=== PATIENT | male | born 1955 | race Caucasian/White ===

== ENCOUNTER 2020-02-12 18:43 | Observation (INO) | payer MEDICARE, OTHER ==
--- NOTE | 2020-02-12 19:33 | RAD ---
PORTABLE CHEST: 02/12/20 HISTORY: Fever. Lungs are clear. No infiltrate or vascular congestion. Heart size is normal. IMPRESSION: No acute findings. POS: AGW
[2020-02-12 19:55] LABS: Mean Corpuscular Volume 89.8 fL (78.0-98.0)
[2020-02-12 20:04] LABS: #Lymphocytes 0.7 thou/uL (1.20-3.40); #Monocytes 0.3 thou/uL (0.11-0.59); #Neutrophils 2.9 thou/uL (1.40-6.50); %Basophils 0.6 % (0.0-1.0); %Eosinophils 0.7 % (0.0-10.0); %Lymphocytes 18.1 % (21.0-51.0); %Monocytes 8.1 % (0.0-10.0); %Neutrophils 72.5 % (42.0-75.0); Hemoglobin 13.8 g/dL (14.0-18.0); Mean Corpuscular HGB CONC 33.6 g/dL (32.0-36.0); Mean Corpuscular Hemoglobin 30.1 pg (27.0-31.0); Mean Platelet Volume 10.4 fL (7.4-10.4); Platelet Count 89 thou/uL (130-400); Platelet Morphology Comment Appears Decreased; RBC Distribution Width 16.5 % (11.5-14.5); Red Blood Cell (RBC) Count 4.58 mill/uL (4.70-6.10)
[2020-02-12 20:11] LABS: ALT (SGPT) 59 U/L (8-55); AST (SGOT) 72 U/L (5-34); Albumin 3.3 g/dL (3.4-4.8); Alkaline Phosphatase 109 U/L (40-110); Anion Gap 9 mmol/L (10-20); BUN (Urea Nitrogen) 10 mg/dL (8.4-25.7); Bilirubin, Total 0.8 mg/dL (0.2-1.2); Calc. Creatinine Clearance 0 mL/min (70-130); Calcium 8.2 mg/dL (7.8-10.44); Carbon Dioxide 26 mmol/L (23-31); Chloride 104 mmol/L (98-107); Estimated GFR-MDRD 90; Globulin 3.3 g/dL (2.4-3.5); Glucose 88 mg/dL (80-115); Potassium 3.2 mmol/L (3.5-5.1); Protein, Total 6.6 g/dL (5.8-8.1); Sodium 136 mmol/L (136-145)
[2020-02-12 21:40] LABS: Bilirubin Negative (Negative); Blood, Urine Negative (Negative); Clarity Clear (Clear); Glucose, Urine (Dipstick) Normal (Negative); Leukocyte Negative Leu/uL (Negative); Nitrite Negative (Negative); Protein, Urine (Dipstick) Negative (Neg-Trace); Urobilinogen 3 mg/dL (Less than 2)
[2020-02-12 23:41] VITALS: BMI 20.9
[2020-02-13] MEDS ORDERED: hydrALAZINE 20 MG/ML VIAL SLOW IVP SCH (00:30)
[2020-02-13] MEDS ORDERED: Acetaminophen 325 MG TAB PO PRN (00:55)
[2020-02-13] MEDS ORDERED: Acetaminophen 650 MG Suppository PR PRN (00:55)
[2020-02-13] MEDS ORDERED: Lorazepam 1 MG TAB PO PRN (01:16)
[2020-02-13 01:36] LABS: Amphetamine Not Detected (NotDetected); Barbiturates Screen Not Detected (NotDetected); Benzodiazepine Screen Not Detected (NotDetected); Cocaine Metabolite Screen Not Detected (NotDetected); Medtox Control Line Valid? VALID (VALID); Medtox Reader # READER 1; Methadone Not Detected (NotDetected); Methamphetamine Not Detected (NotDetected); Opiate Screen Not Detected (NotDetected); Oxycodone Screen Not Detected (NotDetected); Phencyclidine (PCP) Not Detected (NotDetected); THC/Cannabinoid Screen Detected (NotDetected); Tricyclic Screen Not Detected (NotDetected)
[2020-02-13] MEDS: Potassium Chloride 20 MEQ TAB PO SCH ×2 (02:53→03:21)
[2020-02-13] MEDS: Thiamine HCl 200 MG/2 ML VIAL IM SCH ×2 (02:53→03:21)
[2020-02-13 03:14] LABS: #Lymphocytes 1.1 thou/uL (1.20-3.40); #Monocytes 0.3 thou/uL (0.11-0.59); %Basophils 0.5 % (0.0-1.0); %Eosinophils 0.4 % (0.0-10.0); %Lymphocytes 24.4 % (21.0-51.0); %Monocytes 7.5 % (0.0-10.0); %Neutrophils 67.2 % (42.0-75.0); Hemoglobin 14.2 g/dL (14.0-18.0); Mean Corpuscular HGB CONC 33.6 g/dL (32.0-36.0); Mean Corpuscular Hemoglobin 29.8 pg (27.0-31.0); Mean Corpuscular Volume 88.6 fL (78.0-98.0); Mean Platelet Volume 10.2 fL (7.4-10.4); Platelet Count 87 thou/uL (130-400); RBC Distribution Width 16.3 % (11.5-14.5); Red Blood Cell (RBC) Count 4.75 mill/uL (4.70-6.10); White Blood Cell (WBC) Count 4.5 thou/uL (4.8-10.8)
[2020-02-13 03:25] LABS: Lactic Acid 0.6 mmol/L (0.5-2.2)
[2020-02-13 03:44] LABS: Anion Gap 11 mmol/L (10-20); BUN (Urea Nitrogen) 8 mg/dL (8.4-25.7); Calc. Creatinine Clearance 81 mL/min (70-130); Calcium 8.4 mg/dL (7.8-10.44); Carbon Dioxide 23 mmol/L (23-31); Chloride 108 mmol/L (98-107); Estimated GFR-MDRD Greater than 90; Glucose 96 mg/dL (80-115); Potassium 3.4 mmol/L (3.5-5.1); Sodium 139 mmol/L (136-145)
--- NOTE | 2020-02-13 08:00 | HP ---
TIME OF ASSESSMENT: 0030 hours. REASON FOR ADMISSION: Syncope. HISTORY OF PRESENT ILLNESS: Mr. Mroales is a 65-year-old gentleman who states he came into the emergency department after having a syncopal episode. The patient states he has answered questions from multiple people since arriving to the emergency department and is refusing to answer any further questions. He does deny having any complaints at this time except feeling cold and requesting the temperature in the room to be increased. The patient became very agitated and upset, requesting to be left alone and to obtain information needed from the notes and nurse, we had spoken to on the floor. Most of the information obtained from the ED notes and from nurse. The patient reportedly had an episode of choking as per EMS, and became unresponsive. The family reportedly did want chest compression. The patient responded, but came back to complaining of pain to the right side of his chest. He did state he was not feeling well prior to the syncopal episode. To me, he denied having any preceding chest pain or difficulty breathing. Denies having any dizziness. The patient has left-sided droop with slurred speech at baseline. Apparently, his blood glucose was checked and low at 56, therefore given a bolus of D10 by EMS. Per ED notes, the patient reported feeling unwell since yesterday, and had a temperature of 101 at home. He has been afebrile since arriving to the emergency department. He complained of feeling fatigued. Denies any cough or hemoptysis. No abdominal pain. No nausea or vomiting. No urinary symptoms. According to the floor nurse, the patient reported smoking 1 to 2 packs per day and initially requested nicotine patch. However, once I went to verify this with him, he became very upset and stated that next time he will not let anyone know that he smokes and he is not interested in any nicotine patch. The patient also reported to nurses that he drinks 2 to 3 beers a day. With me, he became very agitated and did not wish to talk about his alcohol intake, but did deny having any history of seizures or tremors when not drinking alcohol. Denies any drug use. The patient with a history of tongue cancer, status post chemoradiation with subsequent damage to the left mandible, requiring jaw replacement in 2019. The patient apparently had a skin graft to that area taken from the left lower extremity with the wound has been slow healing. EMERGENCY DEPARTMENT COURSE: In the emergency department, EKG showed sinus bradycardia with no ST changes or T-wave abnormalities. He had a chest x-ray done which showed no acute findings. In the emergency department, the patient was given 1 L of normal saline. Admitted for further syncopal workup. LABORATORY STUDIES: Low white count of 4.0, hemoglobin 13.8, hematocrit 41.1, neutrophils 72.5%. Sodium was 136, potassium slightly low at 3.2, BUN 10, creatinine 0.86, GFR 90, glucose 88, total bilirubin 0.8, AST 72, ALT 59, alkaline phosphatase 109. Initial troponin negative. Albumin 3.3. Urinalysis done, was unremarkable. PAST MEDICAL HISTORY: 1. Tongue cancer status post chemoradiation. 2. Hypertension. 3. Hyperlipidemia. 4. Hypothyroidism. 5. Daily alcohol use. 6. Tobacco use. PAST SURGICAL HISTORY: Jaw replacement in 2019. SOCIAL HISTORY: The patient reports drinking 2 to 3 beers per day. Denies illicit drug use. Reports smoking 1 to 2 packs per day. ALLERGIES: NO KNOWN DRUG ALLERGIES. CURRENT MEDICATIONS: Lisinopril 20 mg two tablets p.o. daily. PHYSICAL EXAMINATION: GENERAL: The patient appears thin, frail, well developed, in no acute distress. VITAL SIGNS: Temperature 97.6, pulse 61, respirations 14, O2 saturation 98% on room air, blood pressure of 217/102. HEENT: Normocephalic and atraumatic. The patient with facial droop, which is longstanding. Has had a jaw replacement in 2019. Pupils are equal, round, and reactive to light. Sclerae without icterus. Remaining physical exam limited due to patient requesting to be left alone. LUNGS: Clear. CARDIAC: Regular rate and rhythm. ABDOMEN: Soft, nontender, nondistended. Normoactive bowel sounds present. No guarding or rigidity. EXTREMITIES: Lower extremity with bandage to the left lower extremity, however, patient refusing to be examined. He has a skin graft done for the left jaw surgery with slow healing. Unable to examine as the patient has refused. No evidence of lower extremity edema. NEUROLOGIC: Alert and oriented x3. INVESTIGATIONS: As mentioned above in HPI. IMPRESSION AND PLAN: Mr. Morales is a 65-year-old gentleman who had a syncopal episode today and apparently family had seen him unconscious and delivered one compression as they were confused as to what was going on. Unable to obtain much history from the patient as he is refusing to provide any information. He does report feeling unwell prior to the episode, but denies any preceding chest pain, palpitations, or shortness of breath. Denies any headaches. At present, he denies any complaints except for feeling cold. The patient with a known history of tongue cancer status post chemoradiation, for which required two chemoradiation followed by jaw replacement with a skin graft taken from the left lower extremity that continues to heal slowly. Unable to assess the wound. The patient denies any signs or symptoms of infection involving the wound. He was reportedly febrile at home with a temperature of 101, but has been afebrile since arriving to the emergency department. He has not been started on any antibiotics and received a liter of normal saline. We will continue to manage the following. 1. Syncope. We will obtain an echo, carotid Dopplers, orthostatic static blood pressures, and continue his cardiac monitoring. 2. Hypokalemia. Will replace potassium. We will also add magnesium. 3. COVID rule out. Given low white count of 4 with slightly elevated AST and ALT, and reported fever. We will need to rule out COVID-19. 4. History of heavy alcohol use. We will initiate the ASE protocol. UDS ordered. 5. Hypertension. Monitor blood pressure. Resume home medications once verified. 6. Hypothyroidism. We will check TSH. Resume home medications once verified. 7. Code status. The patient reported to nurse he does not wish to be intubated or have compressions done on him. He does not have any advanced directives in place. He is refusing to discuss advanced directives at this time, nor who his MPOA is. To be readdressed with day team in the morning. 8. Gastrointestinal prophylaxis with famotidine. We will hold off on mechanical SCDs until wound evaluated. Consult has been placed to the Wound Care. Case was discussed with attending, who agrees with plan of care as described above. Job ID: [id number] MTDD
[2020-02-13] MEDS: Multivitamin W/ Minerals 1 TAB PO SCH ×2 (08:37→08:54)
[2020-02-13] MEDS: Folic Acid 1 MG TAB PO SCH ×2 (08:37→08:54)
[2020-02-13] MEDS: Famotidine 20 MG TAB PO SCH ×2 (08:37→08:54)
[2020-02-13] MEDS ORDERED: Famotidine/PF 20 mg/2ml Vial SLOW IVP SCH (09:00)
[2020-02-13] MEDS ORDERED: traMADol HCl 50 MG TAB PO PRN (12:23)
[2020-02-13] MEDS ORDERED: Lisinopril 20 MG TAB PO SCH (15:00)
[2020-02-13 15:06] LABS: SARS-CoV-2 MS2 Positive; SARS-CoV-2 N Gene Negative; SARS-CoV-2 S Gene Negative; SARS-CoV-2 orf1ab Negative
--- NOTE | 2020-02-13 15:36 | PDOC.HOSPP ---
- Subjective Encounter Date: 02/13/20 (f/u syncope) Encounter Time: 15:35 Subjective: Pt was admitted overnight for syncope - not much hx obtained - see H&P Pt reports yesterday not feeling well, went to put his head down and blacked out. States he woke up with someone on top of him and an ambulance. He also reports a recent episode of chills/fevers and states it was a few days ago. He denies any ppt or relieving factors. He reports low blood sugars in the past, denies any hx of DM or medications for this. He does report missing his normal oatmeal yesterday. - Objective Vital Signs & Weight: Vital Signs (12 hours) Temp Pulse Resp BP BP BP BP 02/13/20 15:07 98.2 F 63 16 185/85 H 02/13/20 12:23 98.5 F 65 20 213/103 H 214/98 H 177/84 H 02/13/20 08:30 98.6 F 72 20 190/91 H Pulse Ox 02/13/20 15:07 98 02/13/20 12:23 96 02/13/20 08:30 97 Weight Weight 133 lb 12.8 oz I&O: 02/12/20 02/13/20 02/14/20 06:59 06:59 06:59 Intake Total 1220 Output Total 950 Balance 270 Result Diagrams: 02/13/20 02:59 02/13/20 02:59 EKG Reviewed by me: Yes (tele - sinus 80's) Hospitalist ROS - Medication Medications: Active Medications Generic Name Dose Route Start Last Admin Trade Name Silvestre PRN Reason Stop Dose Admin Famotidine 20 mg 02/13/20 09:00 02/13/20 08:54 Pepcid PO Not Given BID JOAN Folic Acid 1 mg 02/13/20 09:00 02/13/20 08:54 Folvite PO Not Given DAILY JOAN Iron/Minerals/Multivitamins 1 tab 02/13/20 09:00 02/13/20 08:54 Theragran M PO Not Given DAILY JOAN Lisinopril 40 mg 02/13/20 15:00 02/13/20 15:00 Zestril PO 02/13/20 17:00 40 mg NOW JOAN Administration - Exam General Appearance: NAD General - other findings: cachectic appearing Heart: RRR, no murmur Respiratory - other findings: distant lung sounds - no audible wheezing/rhonchi/ rales Gastrointestinal: soft, non-tender, non-distended, normal bowel sounds Extremities: no cyanosis, no clubbing, no edema Skin - other findings: LLE - lateral aspect - denuded area, clean base, no surrounding erythema Psychiatric: normal affect Hosp A/P (1) Syncope Code(s): R55 - SYNCOPE AND COLLAPSE Status: Acute Qualifiers: Syncope type: unspecified Qualified Code(s): R55 - Syncope and collapse (2) Hypertension Code(s): I10 - ESSENTIAL (PRIMARY) HYPERTENSION Status: Chronic Qualifiers: Hypertension type: essential hypertension Qualified Code(s): I10 - Essential (primary) hypertension (3) Hypothyroid Code(s): E03.9 - HYPOTHYROIDISM, UNSPECIFIED Status: Chronic Qualifiers: Hypothyroidism type: unspecified Qualified Code(s): E03.9 - Hypothyroidism , unspecified (4) Hypokalemia Code(s): E87.6 - HYPOKALEMIA Status: Acute (5) Hypoglycemia Code(s): E16.2 - HYPOGLYCEMIA, UNSPECIFIED Status: Acute (6) Tobacco abuse Code(s): Z72.0 - TOBACCO USE Status: Chronic (7) Alcohol use Code(s): Z72.89 - OTHER PROBLEMS RELATED TO LIFESTYLE Status: Chronic (8) Skin ulcer Code(s): L98.499 - NON-PRESSURE CHRONIC ULCER OF SKIN OF SITES W UNSP SEVERITY Status: Chronic - Plan COVID negative - proceed with syncope eval - echo and carotid ultrasound Hypoglycemia - has not recurred, uncertain etiology Hypothyroid on replacement with elevated TSH - check Free t4 Replace potassium resume lisinopril and likely will need a 2nd agent as bp is uncontrolled continue telemetry monitoring chronic skin ulcer- non-adherent dressing, wound appears clean thrombocytopenia - monitor Daily alcohol use - monitor for signs of withdrawal. Tobacco use - pt declines nicotine patch. dvt prophy - hold on this due to thrombocytopenia and skin wound on LLE. Pt is ambulatory gi prophy - not indicated code status DNAR - pt confirmed this reviewed plan of care with patient, no questions or further needs at end of eval
[2020-02-13] MEDS ORDERED: Potassium Chloride 20 MEQ TAB PO SCH (15:45)
[2020-02-13] MEDS ORDERED: Potassium Chloride 20 MEQ/100 ML PREMIX BAG IVPB SCH (17:00)
--- NOTE | 2020-02-13 17:24 | ULT ---
CAROTID DOPPLER: Indications: Syncope. FINDINGS: Ultrasound doppler study was performed of the extracranial carotid arteries. Color doppler, spectral analysis and velocity recordings were obtained. Diffuse intimal thickening and echogenic plaque seen throughout both extracranial carotid systems. There are increased velocities recorded in the right common carotid artery at 167 cm/sec systolic. The internal carotid artery velocities are within normal range bilaterally. The vertebral arteries show antegrade flow. IMPRESSION: 1. Moderate echogenic plaque throughout both carotid systems. 2. Elevated velocities in the right common carotid artery. Recommend elective CTA neck to further dann luate. POS: TREE
--- NOTE | 2020-02-13 18:00 | PDOC.EVN ---
Event Note - Event Note Event Note: Called by nurse for bp's in the 190's systolic. He received lisinopril earlier. Will order low dose amlodipine starting tonight, and prn hydralazine. The goal is to avoid any rapid changes in bp and slowly lower with goal of less [id number] systolic.
[2020-02-13] MEDS: hydrALAZINE 20 MG/ML VIAL SLOW IVP PRN (18:16)
[2020-02-13] MEDS: Atorvastatin Calcium 20 MG TAB PO SCH (20:00)
[2020-02-13] MEDS ORDERED: Amlodipine 5 MG TAB PO SCH (21:00)
[2020-02-13] MEDS ORDERED: Enoxaparin Sodium 30 MG/0.3 ML SYRINGE SC SCH (21:00)
[2020-02-14 04:16] LABS: Anion Gap 12 mmol/L (10-20); BUN (Urea Nitrogen) 10 mg/dL (8.4-25.7); Calc. Creatinine Clearance 78 mL/min (70-130); Calcium 8.4 mg/dL (7.8-10.44); Carbon Dioxide 22 mmol/L (23-31); Chloride 106 mmol/L (98-107); Estimated GFR-MDRD Greater than 90; Glucose 64 mg/dL (80-115); Potassium 3.6 mmol/L (3.5-5.1); Sodium 136 mmol/L (136-145)
[2020-02-14] MEDS: Levothyroxine Sodium 50 MCG TAB PO SCH (05:45)
[2020-02-14] MEDS: Lisinopril 20 MG TAB PO SCH (08:47)
[2020-02-14] MEDS: Magnesium Oxide 400 MG TAB PO SCH (08:48)
[2020-02-14] MEDS: Thiamine 100 MG TAB PO SCH (08:48)
[2020-02-14] MEDS: Multivitamin W/ Minerals 1 TAB PO SCH (08:48)
[2020-02-14] MEDS: Folic Acid 1 MG TAB PO SCH (08:48)
[2020-02-14] MEDS ORDERED: Amlodipine 5 MG TAB PO SCH ×2 (09:00→18:15)
[2020-02-14] MEDS ORDERED: Iopamidol 370 76% 100 ML VIAL ONE (09:39)
--- NOTE | 2020-02-14 10:15 | PDOC.HOSPP ---
- Subjective Encounter Date: 02/14/20 (f/u syncope) Encounter Time: 10:13 Subjective: Pt without complaints today - denies any lightheaded/dizziness/cp/sob/n/v/abd pain. He denies any sx with the orthostatic VS - Objective Vital Signs & Weight: Vital Signs (12 hours) Temp Pulse Resp BP BP BP BP 02/14/20 08:44 98.2 F 90 16 179/58 H 151/70 H 02/14/20 04:27 171/76 H 02/14/20 03:46 97.4 F L 70 17 171/76 H BP Pulse Ox 02/14/20 08:44 203/58 H 02/14/20 04:27 02/14/20 03:46 96 Weight Weight 133 lb 12.8 oz I&O: 02/13/20 02/14/20 02/15/20 06:59 06:59 06:59 Intake Total 1220 325 Output Total 950 940 Balance 270 -615 Result Diagrams: 02/13/20 02:59 02/14/20 03:45 Radiology Reviewed by me: Yes (Abnormal Carotid US - bilateral moderate blockage ) EKG Reviewed by me: Yes (tele - sinus 70-90's) Hospitalist ROS - Medication Medications: Active Medications Generic Name Dose Route Start Last Admin Trade Name Silvestre PRN Reason Stop Dose Admin Amlodipine Besylate 5 mg 02/14/20 09:00 02/14/20 08:47 Norvasc PO 5 mg DAILY JOAN Administration Atorvastatin Calcium 20 mg 02/13/20 21:00 02/13/20 20:00 Lipitor PO 20 mg HS JOAN Administration Folic Acid 1 mg 02/13/20 09:00 02/14/20 08:48 Folvite PO 1 mg DAILY JOAN Administration Hydralazine HCl 20 mg 02/13/20 17:57 02/13/20 18:16 Apresoline SLOW IVP 20 mg Q6H PRN Administration SBP Greater Than 180 Iron/Minerals/Multivitamins 1 tab 02/13/20 09:00 02/14/20 08:48 Theragran M PO 1 tab DAILY JOAN Administration Levothyroxine Sodium 50 mcg 02/14/20 06:00 02/14/20 05:45 Synthroid PO 50 mcg 0600 JOAN Administration Lisinopril 40 mg 02/14/20 09:00 02/14/20 08:47 Zestril PO 40 mg DAILY JOAN Administration Magnesium Oxide 400 mg 02/14/20 09:00 02/14/20 08:48 Magnesium Oxide PO 400 mg DAILY JOAN Administration Thiamine HCl 100 mg 02/14/20 09:00 02/14/20 08:48 Thiamine PO 100 mg DAILY JOAN Administration - Exam Heart: RRR, no murmur Respiratory: CTAB, no wheezes, no rales, no ronchi Gastrointestinal: soft, non-tender, non-distended, normal bowel sounds Extremities: no cyanosis, no clubbing, no edema Skin - other findings: unchanged clean skin ulcer lateral LLE Psychiatric: normal affect Hosp A/P (1) Syncope Code(s): R55 - SYNCOPE AND COLLAPSE Status: Acute Qualifiers: Syncope type: unspecified Qualified Code(s): R55 - Syncope and collapse (2) Hypertension Code(s): I10 - ESSENTIAL (PRIMARY) HYPERTENSION Status: Chronic Qualifiers: Hypertension type: essential hypertension Qualified Code(s): I10 - Essential (primary) hypertension (3) Hypothyroid Code(s): E03.9 - HYPOTHYROIDISM, UNSPECIFIED Status: Chronic Qualifiers: Hypothyroidism type: unspecified Qualified Code(s): E03.9 - Hypothyroidism , unspecified (4) Hypokalemia Code(s): E87.6 - HYPOKALEMIA Status: Acute (5) Hypoglycemia Code(s): E16.2 - HYPOGLYCEMIA, UNSPECIFIED Status: Acute (6) Tobacco abuse Code(s): Z72.0 - TOBACCO USE Status: Chronic (7) Alcohol use Code(s): Z72.89 - OTHER PROBLEMS RELATED TO LIFESTYLE Status: Chronic (8) Skin ulcer Code(s): L98.499 - NON-PRESSURE CHRONIC ULCER OF SKIN OF SITES W UNSP SEVERITY Status: Chronic - Plan COVID negative syncope - awaiting echo and CT angiogram neck ordered for abnormal carotid US - start IVF due to contrast study Hypoglycemia on labs this AM - not sx Hypothyroid on replacement with elevated TSH - normal free T4 - will need recheck in outpatient setting HTN - uncontrolled with orthostatic changes - asx. Continue amlodipine ( initiated yesterday) and lisinopril and monitor. continue telemetry monitoring chronic skin ulcer- wound clean, continue dressing changes thrombocytopenia - stable Daily alcohol use - so far, no signs of withdrawal Tobacco use - pt declines nicotine patch. Per RN - poor PO intake - continue supplements. dvt prophy - hold on this due to thrombocytopenia and skin wound on LLE. Pt is ambulatory gi prophy - not indicated code status DNAR reviewed plan of care with patient, no questions or further needs at end of eval home pending improved bp control, results of echo and CT-A Addendum at 18:04 - CT-A without significant stenosis, echo pending. Poor blood pressure control despite addition and increase with amlodipine. Will increase amlodipine, and recheck orthostatics in AM and follow blood pressure. Pt agreeable to remain in hospital overnight. Due to poor bp control, orthostatic changes in bp, considering IP status.
[2020-02-14] MEDS: Sodium Chloride 0.9% 1,000 ML IV SCH (11:11)
--- NOTE | 2020-02-14 11:35 | CT ---
CTA OF THE NECK WITH IV CONTRAST AND 3-D REFORMATTED IMAGING. INDICATION: History of abnormal carotid duplex ultrasound with concern for stenosis involving the rig ht common carotid artery COMPARISON: Right carotid ultrasound report dated 02/13/2020 FINDINGS: Right CCA: There is a mild to moderate atherosclerotic disease involving the right common carotid ar mookie with only mild luminal caliber narrowing seen along its proximal segment. Right ICA: There is mild luminal caliber narrowing due to atherosclerotic plaque involving the proxi mal right ICA. 20% luminal caliber narrowing. No hemodynamically significant stenosis is noted. There is moderate calcification involving the right petrous segment of the ICA. Right Subclavian: Patent. Right Vertebral Artery: Patent. Left CCA: [id number] atherosclerotic irregularity seen involving left common carotid artery. Left ICA: There is calcified atherosclerotic plaque involving the proximal left ICA inducing 20% lum inal caliber narrowing. Remaining course of the cervical ICAs patent. There are moderate calcifications involving the petrous segment of the left ICA. Left Subclavian: Patent. Left Vertebral Artery: Patent. Aerodigestive tract: Clear. Parotids/Submandibular/Thyroid glands: Normal. Lymph nodes: No pathologically enlarged lymph nodes. Lung Apices: Clear. Bones: No acute osseous abnormality. Incidentals: None. IMPRESSION: 1. No hemodynamically significant stenosis, occlusion or aneurysmal formation. 2. Mild luminal caliber narrowing involving the proximal ICAs bilaterally measuring up to 20%. 3. Moderate calcification involving the petrous segment of the right and left ICA.
[2020-02-14] MEDS: hydrALAZINE 20 MG/ML VIAL SLOW IVP PRN (14:33)
[2020-02-14] MEDS: Atorvastatin Calcium 20 MG TAB PO SCH (19:43)
[2020-02-15] MEDS: Levothyroxine Sodium 50 MCG TAB PO SCH (05:50)
[2020-02-15] MEDS: Sodium Chloride 0.9% 1,000 ML IV SCH (05:50)
[2020-02-15] MEDS: Lisinopril 20 MG TAB PO SCH (08:29)
[2020-02-15] MEDS: Thiamine 100 MG TAB PO SCH (08:30)
[2020-02-15] MEDS: Folic Acid 1 MG TAB PO SCH (08:30)
[2020-02-15] MEDS: Magnesium Oxide 400 MG TAB PO SCH (08:30)
[2020-02-15] MEDS: Multivitamin W/ Minerals 1 TAB PO SCH (08:30)
--- NOTE | 2020-02-15 08:52 | PDOC.HOSPP ---
- Subjective Encounter Date: 02/15/20 (f/u syncope) Encounter Time: 08:49 Subjective: Pt is without complaints today - denies lightheaded/dizzy/cp/sob/n/v/abd pain or any concerns. He has voided multiple times overnight. Is on IVF post- contrast CT scan. - Objective Vital Signs & Weight: Vital Signs (12 hours) Temp Pulse Resp BP BP Pulse Ox 02/15/20 08:29 77 163/74 H 02/15/20 04:00 98.0 F 72 20 163/72 H 96 Weight Admit Weight 133 lb 8 oz Weight 133 lb 12.8 oz I&O: 02/14/20 02/15/20 02/16/20 06:59 06:59 06:59 Intake Total 325 960 Output Total 940 1400 Balance -615 440 Result Diagrams: 02/13/20 02:59 02/14/20 03:45 EKG Reviewed by me: Yes (tele - sinus 60's) Hospitalist ROS - Medication Medications: Active Medications Generic Name Dose Route Start Last Admin Trade Name Freq PRN Reason Stop Dose Admin Amlodipine Besylate 10 mg 02/15/20 09:00 02/15/20 08:29 Norvasc PO 10 mg DAILY JOAN Administration Atorvastatin Calcium 20 mg 02/13/20 21:00 02/14/20 19:43 Lipitor PO 20 mg HS JOAN Administration Folic Acid 1 mg 02/13/20 09:00 02/15/20 08:30 Folvite PO 1 mg DAILY JOAN Administration Hydralazine HCl 20 mg 02/13/20 17:57 02/14/20 14:33 Apresoline SLOW IVP 20 mg Q6H PRN Administration SBP Greater Than 180 Iron/Minerals/Multivitamins 1 tab 02/13/20 09:00 02/15/20 08:30 Theragran M PO 1 tab DAILY JOAN Administration Levothyroxine Sodium 50 mcg 02/14/20 06:00 02/15/20 05:50 Synthroid PO 50 mcg 0600 JOAN Administration Lisinopril 40 mg 02/14/20 09:00 02/15/20 08:29 Zestril PO 40 mg DAILY JOAN Administration Magnesium Oxide 400 mg 02/14/20 09:00 02/15/20 08:30 Magnesium Oxide PO 400 mg DAILY JOAN Administration Thiamine HCl 100 mg 02/14/20 09:00 02/15/20 08:30 Thiamine PO 100 mg DAILY JOAN Administration - Exam General Appearance: NAD Heart: RRR, no murmur Respiratory: CTAB, no wheezes, no rales, no ronchi Gastrointestinal: soft, non-tender, non-distended, normal bowel sounds Extremities: no cyanosis, no clubbing, no edema Psychiatric: normal affect Hosp A/P (1) Syncope Code(s): R55 - SYNCOPE AND COLLAPSE Status: Acute Qualifiers: Syncope type: unspecified Qualified Code(s): R55 - Syncope and collapse (2) Hypertension Code(s): I10 - ESSENTIAL (PRIMARY) HYPERTENSION Status: Chronic Qualifiers: Hypertension type: essential hypertension Qualified Code(s): I10 - Essential (primary) hypertension (3) Hypothyroid Code(s): E03.9 - HYPOTHYROIDISM, UNSPECIFIED Status: Chronic Qualifiers: Hypothyroidism type: unspecified Qualified Code(s): E03.9 - Hypothyroidism , unspecified (4) Hypokalemia Code(s): E87.6 - HYPOKALEMIA Status: Acute (5) Hypoglycemia Code(s): E16.2 - HYPOGLYCEMIA, UNSPECIFIED Status: Acute (6) Tobacco abuse Code(s): Z72.0 - TOBACCO USE Status: Chronic (7) Alcohol use Code(s): Z72.89 - OTHER PROBLEMS RELATED TO LIFESTYLE Status: Chronic (8) Skin ulcer Code(s): L98.499 - NON-PRESSURE CHRONIC ULCER OF SKIN OF SITES W UNSP SEVERITY Status: Chronic - Plan COVID negative syncope - CT angio without significant stenosis, awaiting Echo report Hypothyroid on replacement with elevated TSH - normal free T4 - will need recheck in outpatient setting HTN - improved control with combination of amlodipine and lisinopril chronic skin ulcer- wound clean, continue dressing changes thrombocytopenia - stable Daily alcohol use - so far, no signs of withdrawal, recommend vitamin supplements at discharge Tobacco use - pt declines nicotine patch. Per RN - poor PO intake here, pt denies this at home - continue supplements. dvt prophy - hold on this due to thrombocytopenia and skin wound on LLE. Pt is ambulatory gi prophy - not indicated code status DNAR reviewed plan of care with patient, no questions or further needs at end of eval anticipate home today.
[2020-02-15] MEDS ORDERED: Amlodipine 10 MG TAB PO SCH (09:00)
[2020-02-15 15:46] VITALS: BP 164/84; TEMP 97.9
--- NOTE | 2020-02-16 01:59 | DIS ---
DATE OF ADMISSION: 02/12/2020 DATE OF DISCHARGE: 02/15/2020 MEDICATIONS RECONCILED AT DISCHARGE: New medications: 1. Amlodipine 10 mg p.o. daily, prescription provided for 30 days, further refills from the primary care provider. 2. Folic acid 1 mg daily. 3. Magnesium oxide 400 mg daily. 4. Multivitamin daily. 5. Thiamine 100 mg daily. Medications to resume: 1. Atorvastatin 20 mg daily. 2. Levothyroxine 50 mcg daily. 3. Lisinopril 40 mg daily. 4. Naproxen 500 mg b.i.d. p.r.n. 5. Tramadol 50 mg p.o. b.i.d. FINAL DIAGNOSES: 1. Syncope, unknown etiology. 2. Uncontrolled hypertension, improved. 3. Hypokalemia, resolved. SECONDARY DIAGNOSES: 1. Hypothyroidism. 2. Dyslipidemia. 3. Alcohol use. 4. Tobacco use. HISTORY OF PRESENT ILLNESS: Mr. Morales is a 65-year-old male who came to the emergency department after a syncopal event. He reports going to lay is head down because he felt lightheaded or dizzy and the next thing he remembers he was on the ground. He was admitted for a syncope evaluation. HOSPITAL COURSE: The patient was ruled out for COVID and had a delay in initiation of studies for the syncope because of this. He underwent echocardiogram, which is essentially normal, had a CT angiogram of his neck, which did not show any significant stenosis. He has been monitored on telemetry and maintained a sinus rhythm. The patient's blood pressures have been uncontrolled and in the 190s and 200s systolic. He is on lisinopril 40 mg once daily at home. I added amlodipine low dose at first and titrated up to 10 mg daily. With this combination, his blood pressures today are in the 150s and 160s. He was orthostatic at the beginning of this admission, however, that has resolved. The patient had an abnormal carotid Doppler ultrasound, and underwent CT angiogram which did not show any significant stenosis. Because of the contrast study and patient is on an RAS inhibitor, he was hydrated with IV fluids and tolerated this well. The patient is overall feeling well, asymptomatic, no further episodes of syncope. He does meet criteria for discharge to home. Of note, in the outpatient setting , his TSH is 8, and needs consideration for adjustment of his levothyroxine. The patient does have a thrombocytopenia, which has been stable here. Further workup is deferred to the outpatient setting. Of note, patient does report daily alcohol use. He was started on vitamin and mineral supplementation and monitored for alcohol withdrawal, which he has not demonstrated. PHYSICAL EXAMINATION: VITAL SIGNS: On day of discharge, please see the note on the chart. CAMACHO FINDINGS AND TEST RESULTS: CBC on February 12; 4.5, 14.2, 42.1, 87. Chemistry from February 13; 136, 3.6, 106, 22, 10, 0.82, 64. Urinalysis, positive urobilinogen. Urine drug screen, present cannabinoids. COVID-19 is negative. Echocardiogram performed today shows an EF of 65% to 70%, mild concentric LVH, structurally normal aortic valve with no significant stenosis or regurgitation. CT angiogram of the neck shows no hemodynamically significant stenosis, occlusion, or aneurysmal formation. Mild luminal caliber narrowing involving the proximal ICAs bilaterally measuring up to 20%. Moderate calcification involving the petrous segment of the right and left ICA. Carotid ultrasound performed February 12,, moderate echogenic plaque throughout both carotid systems. Elevated velocities in the right common carotid artery. Recommend elective CTA neck to evaluate further. Chest x-ray on February 11, no acute findings. DIET: Heart healthy. ACTIVITY: As tolerated. FOLLOWUP: Follow up is with the primary care provider within a week to review this hospitalization, consider adjusting the levothyroxine, evaluate further the platelets, and address any other needs or concerns. Reviewed with patient this hospitalization the importance of followup and seek care precautions. TIME SPENT: Total time coordinating discharge is 35 minutes. Job ID: [id number] [facility]
== END 2020-02-15 19:22 | disposition home or self-care (01) ==
LOC: ERS 18:43 → 2SW 23:16 → 2NO 02-13 16:55
PROVIDERS: ADMIT Internal Medicine; ATTEND Internal Medicine
DX: R55 Syncope and collapse (principal); I10 Essential (primary) hypertension; E87.6 Hypokalemia; E03.9 Hypothyroidism, unspecified; E78.5 Hyperlipidemia, unspecified; F17.210 Nicotine dependence, cigarettes, uncomplicated; E16.2 Hypoglycemia, unspecified; D69.6 Thrombocytopenia, unspecified; L97.929 Non-pressure chronic ulcer of unspecified part of left lower leg with unspecified severity; I65.23 Occlusion and stenosis of bilateral carotid arteries; R50.9 Fever, unspecified; R74.0 Nonspecific elevation of levels of transaminase and lactic acid dehydrogenase [LDH]; Z20.828 Contact with and (suspected) exposure to other viral communicable diseases; Z66 Do not resuscitate; Z85.810 Personal history of malignant neoplasm of tongue; Z79.899 Other long term (current) drug therapy
CPT/HCPCS: 70498; 71045; 80048 ×2; 80053; 80306; 81003; 83605; 83735; 84439; 84443; 84484; 85025 ×2; 93005; 93306; 93880; 96360; 97139 ×2; 99285; U0003; 36415; 87635; 96361; 96365; 96375; 96376; G0378; J0360; J3411; J3475; J3480; J3490; Q9967